=== PATIENT | male | born 1950 | race Caucasian/White ===

== ENCOUNTER 2018-12-06 17:06 | Inpatient (IN) ==
--- NOTE | 2018-12-06 17:19 | Emergency Department Note ---
Disposition Clinical Impression: Pneumonia Qualifiers: Pneumonia type: due to unspecified organism Laterality: right Lung location: lower lobe of lung Qualified Code(s): J18.1 - Lobar pneumonia, unspecified organism Sepsis Qualifiers: Sepsis type: sepsis due to unspecified organism Qualified Code(s): A41.9 - Sepsis, unspecified organism Disposition: Admitted As Inpatient Condition: Fair Referrals: Donald Gonsalez MD [Primary Care Provider] - Forms: ED Satisfaction Letter Time of Disposition: 19:46 General Adult HPI - General Stated complaint: weakness Time Seen by Provider: 12/06/18 17:15 Source: patient, EMS Mode of arrival: EMS Limitations: no limitations Nursing Notes Reviewed: Yes Vital Signs Reviewed: Yes - History of Present Illness HPI Narrative: Patient is a 68-year-old male presenting with weakness. Patient is brought in via EMS from care facility for concern for weakness as well as fall. Per EMS report, patient has had one day of weakness with fall reported yesterday, he is also had multiple episodes of diarrhea, he does state he has some nausea no vomiting. He does note that these had bright red blood per rectum, no melena. He denies any abdominal pain, chest pain or shortness of breath. He states that he just generally feels weak all over, no focal changes. No numbness, tingling or pain or seizures. No confusion. He states that his mental status is at baseline. He is not on a blood thinner. The fall history is unknown, patient states he did not lose consciousness or hit his head that he is aware of. He currently does not have any pain secondary to the fall. He does state that he has had a slight cough and has felt feverish with chills overnight. - Related Data Allergies Allergy/AdvReac Type Severity Reaction Status Date / Time No Known Allergies Allergy Verified 12/06/18 17:31 All systems ED: reviewed and negative except as stated. Review of Systems: As Per HPI Constitutional: Reports: fever, chills, weakness ENT ED: Denies: congestion Cardiovascular: Denies: chest pain, palpitations, dyspnea on exertion, syncope Respiratory: Reports: cough, dyspnea, sputum production. Denies: wheezes, hemoptysis Gastrointestinal: Reports: nausea, diarrhea, hematochezia. Denies: abdominal pain, vomiting, hematemesis, melena Genitourinary: Denies: dysuria Musculoskeletal: Denies: back pain Integumentary: Denies: rash Neurological: Reports: weakness. Denies: headache, numbness, paresthesias, confusion Endocrine: Denies: fatigue Hematological/Lymphatic: Denies: easy bleeding Past Medical History - Past Medical History Attestation: Yes The following information was validated with the patient. Source: patient Physical Exam - General Limitations: no limitations General appearance: cachectic, other (Appears unwell) - Head Head exam: atraumatic, normocephalic, normal inspection - Eye Eye exam: Present: normal appearance, PERRL, EOMI - ENT ENT exam: mucous membranes dry - Neck Neck exam: Present: normal inspection, full ROM, trachea midline - Chest Chest inspection: Present: normal inspection, symmetric chest wall rise - Respiratory Respiratory exam: Present: prolonged expiratory phase. Absent: wheezes, accessory muscle use - Cardiovascular Cardiovascular exam: Present: normal rhythm, tachycardia, normal heart sounds - Abdominal Exam Abdominal exam: Present: soft, Non-Tender. Absent: tenderness, distention, guarding, rebound, rigidity - Extremities Exam Extremities exam: Present: normal inspection - Back Exam Back exam: Present: normal inspection - Neurological Exam Neurological exam: Present: alert, oriented X3, CN II-XII intact - Expanded Neurological Exam Patient oriented to: Present: person, place, time Speech: Present: fluid speech Cranial nerves: EOM function (II, III, IV, ): Normal, facial sensation (V): Normal, facial palsy (VII): Normal, spinal accessory function (XI): Normal, tongue deviation (XII): Normal Cerebellar function: finger to nose: Normal Motor strength - LUE: 5/5 Motor strength - RUE: 5/5 Motor strength - LLE: 5/5 Motor strength - RLE: 5/5 Upper motor neuron exam: pronator drift: Absent bilaterally Sensory exam upper extremity: light touch: Normal Sensory exam lower extremity: light touch: Normal Coma Scale Eye Opening: Spontaneous Coma Scale Motor Response: Obeys Commands Coma Scale Verbal Response: Oriented Coma Scale Total: 15 - Psychiatric Psychiatric exam: Present: normal affect, normal mood - Skin Skin exam: Present: warm, intact, normal color, diaphoresis. Absent: rash Course Vital Signs Temperature 102.4 F H 12/06/18 17:22 Pulse Rate 123 12/06/18 17:22 Respiratory Rate 16 12/06/18 17:22 Blood Pressure 115/70 12/06/18 17:22 O2 Sat by Pulse Oximetry 92 12/06/18 17:22 Temperature 102 F H 12/06/18 19:10 Pulse Rate 117 12/06/18 19:44 Respiratory Rate 18 12/06/18 19:00 Blood Pressure 108/65 12/06/18 19:44 O2 Sat by Pulse Oximetry 97 12/06/18 19:44 Oxygen Delivery Oxygen Delivery Room Air Medical Decision Making - MDM Narrative Medical decision making narrative: Patient is a 68-year-old male presenting with weakness. On arrival, patient is found to be febrile, tachycardic, satting at 98% on 2 L nasal cannula. Patient overall does not appear well, does not appear toxic however. No abdominal tenderness, clear to auscultation bilaterally on examination, he is tachycardic. GCS of 15, NIH of 0. CBC does show a leukocytosis with a left shift, BMP does show acute kidney injury with an elevated serum creatinine, otherwise unremarkable. Troponin is within normal limits LFTs and lipase are within normal limits. Chest x-ray shows questionable right opacification, read by radiologist to be chronic and old, however given patient's symptoms of tachycardia, febrile and recent onset of cough, we will go ahead and start the patient on vancomycin, Zosyn as well as Levaquin, as patient currently resides in the extended care facility. Influenza is negative. At this point in time, patient has been ordered a total of 2 L normal saline, he has had a total of 1/2 liter, remains mildly hypotensive with blood pressure of 100 systolic and tac hycardic. Blood cultures have been drawn. Nursing is currently starting a second line to increase fluids. He has also been ordered Tylenol. At this point in time, he is relatively stable, calm in the bed. Patient's blood pressure after receiving approximately 1500 mL patient's blood pressure has remained at 108 systolic with a map above 65. Recommendation per hospitalist at this time is to start the patient on maintenance fluids as well as placed the patient on cardiac monitoring. He has been admitted at this time. - Medical Records Medical records reviewed: Yes I reviewed the patient's medical records. - Lab Data Lab results reviewed: Yes I reviewed the patient's lab results. Result diagrams: 12/06/18 17:45 12/06/18 17:45 Lab Results 12/06/18 12/06/18 12/06/18 Range/Units 17:45 17:45 17:45 WBC 15.1 H (4.3-11.1) K/mcL RBC 4.83 (4.19-5.50) M/mcL Hgb 14.5 (12.9-16.9) g/dL Hct 42.2 (37.5-50.1) % MCV 87.4 (83.0-100.0) fL MCH 30.0 (28.0-33.3) pg MCHC 34.4 (31.6-35.5) g/dL RDW 13.2 (11.5-14.5) % Plt Count 209 (140-400) K/mcL MPV 10.5 (9.4-12.4) fL Immature Gran % 0.5 (0-4) % Seg Neutrophils % 90.5 % Lymphocytes % 2.5 % Monocytes % 6.4 % Eosinophils % 0.0 % Basophils % 0.1 % Neutrophils # 13.7 H (1.6-8.9) K/mcL Lymphocytes # 0.4 L (0.6-4.6) K/mcL Monocytes # 1.0 (0.0-1.3) K/mcL Eosinophils # 0.0 (0.0-0.6) K/mcL Basophils # 0.0 (0.0-0.2) K/mcL PT 12.9 H (9.4-12.1) Seconds INR 1.1 APTT 33.0 (26.0-36.0) Seconds Sodium 132 L (136-145) mEq/L Potassium 3.6 (3.5-5.1) mEq/L Chloride 97 L (98-107) mEq/L Carbon Dioxide 25 (23-29) mEq/L BUN 25 H (8-23) mg/dL Creatinine 1.35 H (0.70-1.30) mg/dL Est GFR ( Amer) > 60 (> 60) Est GFR (Non-Af Amer) 52 L (> 60) BUN/Creatinine Ratio 19 (6-26) Glucose 160 H (70-105) mg/dL Calculated Osmolality 282 (280-300) Lactic Acid (0.5-2.2) mmol/L Calcium 8.8 (8.6-10.3) mg/dL Total Bilirubin 0.6 (0.3-1.0) mg/dL Direct Bilirubin 0.1 (0.0-0.2) mg/dL Indirect Bilirubin 0.5 (0.0-1.2) mg/dL AST 36 (13-39) Units/L ALT 31 (7-52) Units/L Alkaline Phosphatase 79 (34-104) Units/L Troponin I < 0.03 (< 0.04) ng/mL Serum Total Protein 6.9 (6.4-8.9) g/dL Albumin 4.2 (3.5-5.7) g/dL Globulin 2.7 (2.4-3.5) g/dL Albumin/Globulin Ratio 1.6 (1.1-2.2) Lipase 7 L (11-82) Units/L Urine Color (Yellow) Urine Clarity (Clear) Urine pH (5.0-8.0) pH Units Ur Specific [place] (1.010-1.025) Urine Protein (Neg-Trace) mg/dL Urine Glucose (UA) (Normal) mg/dL Urine Ketones (Negative) mg/dL Urine Blood (Negative) Urine Nitrite (Negative) Urine Bilirubin (Negative) Urine Urobilinogen (Normal) mg/dL Ur Leukocyte Esterase (Negative) Urine Microscopic RBC (0-3) per hpf Urine Microscopic WBC (0-3) per hpf Ur Squamous Epith Cells (None-Few) per lpf Urine Bacteria (None-Few) per hpf Hyaline Casts (None-Few) per lpf 12/06/18 12/06/18 Range/Units 17:45 18:30 WBC (4.3-11.1) K/mcL RBC (4.19-5.50) M/mcL Hgb (12.9-16.9) g/dL Hct (37.5-50.1) % MCV (83.0-100.0) fL MCH (28.0-33.3) pg MCHC (31.6-35.5) g/dL RDW (11.5-14.5) % Plt Count (140-400) K/mcL MPV (9.4-12.4) fL Immature Gran % (0-4) % Seg Neutrophils % % Lymphocytes % % Monocytes % % Eosinophils % % Basophils % % Neutrophils # (1.6-8.9) K/mcL Lymphocytes # (0.6-4.6) K/mcL Monocytes # (0.0-1.3) K/mcL Eosinophils # (0.0-0.6) K/mcL Basophils # (0.0-0.2) K/mcL PT (9.4-12.1) Seconds INR APTT (26.0-36.0) Seconds Sodium (136-145) mEq/L Potassium (3.5-5.1) mEq/L Chloride (98-107) mEq/L Carbon Dioxide (23-29) mEq/L BUN (8-23) mg/dL Creatinine (0.70-1.30) mg/dL Est GFR ( Amer) (> 60) Est GFR (Non-Af Amer) (> 60) BUN/Creatinine Ratio (6-26) Glucose (70-105) mg/dL Calculated Osmolality (280-300) Lactic Acid 1.3 (0.5-2.2) mmol/L Calcium (8.6-10.3) mg/dL Total Bilirubin (0.3-1.0) mg/dL Direct Bilirubin (0.0-0.2) mg/dL Indirect Bilirubin (0.0-1.2) mg/dL AST (13-39) Units/L ALT (7-52) Units/L Alkaline Phosphatase (34-104) Units/L Troponin I (< 0.04) ng/mL Serum Total Protein (6.4-8.9) g/dL Albumin (3.5-5.7) g/dL Globulin (2.4-3.5) g/dL Albumin/Globulin Ratio (1.1-2.2) Lipase (11-82) Units/L Urine Color Yellow (Yellow) Urine Clarity Clear (Clear) Urine pH 5.5 (5.0-8.0) pH Units Ur Specific [place] 1.025 (1.010-1.025) Urine Protein Trace (Neg-Trace) mg/dL Urine Glucose (UA) Normal (Normal) mg/dL Urine Ketones Trace H (Negative) mg/dL Urine Blood Negative (Negative) Urine Nitrite Negative (Negative) Urine Bilirubin Small H (Negative) Urine Urobilinogen Normal (Normal) mg/dL Ur Leukocyte Esterase Small H (Negative) Urine Microscopic RBC 3-5 H (0-3) per hpf Urine Microscopic WBC 3-5 H (0-3) per hpf Ur Squamous Epith Cells Moderate H (None-Few) per lpf Urine Bacteria None Seen (None-Few) per hpf Hyaline Casts None Seen (None-Few) per lpf - Radiology Data Radiology results reviewed: Yes I reviewed the patient's radiology results. Chest X-Ray 12/06/18 17:16 IMPRESSION: No acute findings. D/ / Paulo Epstein MD / Paulo Epstein MD Interpreting Provider: Paulo Epstein MD Head CT 12/06/18 17:16 IMPRESSION: No acute intracranial abnormality. D/ / Marbin Sierra MD / Marbin Sierra MD Interpreting Provider: Marbin Sierra MD - EKG Data EKG #1 EKG attestation: Yes I reviewed and interpreted this EKG. EKG results narrative: EKG performed at 1732 ventricular rate of 122, regular rhythm, normal axis, no ST segment elevation, depression. Overall appears to be sinus tachycardia S.B.A.R. - S.B.A.R. Situation: Demographics, MOA Background: Presenting Complaint, Relevant PMH, Meds, & Allergies Assessment: Vital Signs, Course and respsone to treatment, Exam Concerns, Patient/Family Expectation, Pertinant Lab Results, Outstanding Labs Recommendation: Barrier(s) to disposition, Recommendation based on pending studies, treatments, or consults S.B.A.R. Report Given to: Dr. Mitchell [email or web address] Repor Time: 19:47 (accepted) NIH Stroke Scale - Level of Consciousness LOC: Alert - LOC Questions LOC Questions: Answers both correctly - LOC Commands LOC Commands: Performs both correctly - Best Gaze Best Gaze: Normal - Visual Visual: No visual loss - Facial Palsy Facial Palsy: Normal - Motor Arms Motor Arm-Left: No drift for 10 seconds Motor Arm-Right: No drift for 10 seconds - Motor Legs Motor Leg-Left: No drift for 5 seconds Motor Leg-Right: No drift for 5 seconds - Limb Ataxia Limb Ataxia: Absent of affected limb too weak to perform exam - Sensory Sensory: Normal - Best Language Best Language: No aphasia - Dysarthria Dysarthria: Normal - Extinction and Inattention Extinction and Inattention: Normal - NIHSS Total Score NIHSS Total Score: 0
[2018-12-06] MEDS ORDERED: 0.9 % Sodium Chloride 1,000 ML IVC ONE ×2 (17:20→17:50)
--- NOTE | 2018-12-06 17:43 | Emergency Department Note ---
Disposition Clinical Impression: Pneumonia, Sepsis Disposition: Admitted As Inpatient Condition: Fair Referrals: Donald Gonslaez MD [Primary Care Provider] - Forms: ED Satisfaction Letter General Adult HPI - General Chief complaint: ED Fever Stated complaint: weakness Time Seen by Provider: 12/06/18 17:15 Source: patient Limitations: no limitations - History of Present Illness Pain Scale: 0 - Related Data Allergies Allergy/AdvReac Type Severity Reaction Status Date / Time No Known Allergies Allergy Verified 12/06/18 17:31 Past Medical History - Past Medical History Medical history: Reports: diabetes - Social History Smoking Status: Never smoker Alcohol use: Reports: occasionally Drug use: Reports: none Physical Exam - General Limitations: no limitations General appearance: alert, in no apparent distress Course Vital Signs Temperature 102.4 F H 12/06/18 17:22 Pulse Rate 123 12/06/18 17:22 Respiratory Rate 16 12/06/18 17:22 Blood Pressure 115/70 12/06/18 17:22 O2 Sat by Pulse Oximetry 92 12/06/18 17:22 Temperature 102 F H 12/06/18 19:10 Pulse Rate 117 12/06/18 19:44 Respiratory Rate 18 12/06/18 19:00 Blood Pressure 108/65 12/06/18 19:44 O2 Sat by Pulse Oximetry 97 12/06/18 19:44 Oxygen Delivery Oxygen Delivery Room Air Medical Decision Making - Lab Data Result diagrams: 12/06/18 17:45 12/06/18 17:45 Lab Results 12/06/18 12/06/18 12/06/18 Range/Units 17:45 17:45 17:45 WBC 15.1 H (4.3-11.1) K/mcL RBC 4.83 (4.19-5.50) M/mcL Hgb 14.5 (12.9-16.9) g/dL Hct 42.2 (37.5-50.1) % MCV 87.4 (83.0-100.0) fL MCH 30.0 (28.0-33.3) pg MCHC 34.4 (31.6-35.5) g/dL RDW 13.2 (11.5-14.5) % Plt Count 209 (140-400) K/mcL MPV 10.5 (9.4-12.4) fL Immature Gran % 0.5 (0-4) % Seg Neutrophils % 90.5 % Lymphocytes % 2.5 % Monocytes % 6.4 % Eosinophils % 0.0 % Basophils % 0.1 % Neutrophils # 13.7 H (1.6-8.9) K/mcL Lymphocytes # 0.4 L (0.6-4.6) K/mcL Monocytes # 1.0 (0.0-1.3) K/mcL Eosinophils # 0.0 (0.0-0.6) K/mcL Basophils # 0.0 (0.0-0.2) K/mcL PT 12.9 H (9.4-12.1) Seconds INR 1.1 APTT 33.0 (26.0-36.0) Seconds Sodium 132 L (136-145) mEq/L Potassium 3.6 (3.5-5.1) mEq/L Chloride 97 L (98-107) mEq/L Carbon Dioxide 25 (23-29) mEq/L BUN 25 H (8-23) mg/dL Creatinine 1.35 H (0.70-1.30) mg/dL Est GFR ( Amer) > 60 (> 60) Est GFR (Non-Af Amer) 52 L (> 60) BUN/Creatinine Ratio 19 (6-26) Glucose 160 H (70-105) mg/dL Calculated Osmolality 282 (280-300) Lactic Acid (0.5-2.2) mmol/L Calcium 8.8 (8.6-10.3) mg/dL Total Bilirubin 0.6 (0.3-1.0) mg/dL Direct Bilirubin 0.1 (0.0-0.2) mg/dL Indirect Bilirubin 0.5 (0.0-1.2) mg/dL AST 36 (13-39) Units/L ALT 31 (7-52) Units/L Alkaline Phosphatase 79 (34-104) Units/L Troponin I < 0.03 (< 0.04) ng/mL Serum Total Protein 6.9 (6.4-8.9) g/dL Albumin 4.2 (3.5-5.7) g/dL Globulin 2.7 (2.4-3.5) g/dL Albumin/Globulin Ratio 1.6 (1.1-2.2) Lipase 7 L (11-82) Units/L Urine Color (Yellow) Urine Clarity (Clear) Urine pH (5.0-8.0) pH Units Ur Specific [place] (1.010-1.025) Urine Protein (Neg-Trace) mg/dL Urine Glucose (UA) (Normal) mg/dL Urine Ketones (Negative) mg/dL Urine Blood (Negative) Urine Nitrite (Negative) Urine Bilirubin (Negative) Urine Urobilinogen (Normal) mg/dL Ur Leukocyte Esterase (Negative) Urine Microscopic RBC (0-3) per hpf Urine Microscopic WBC (0-3) per hpf Ur Squamous Epith Cells (None-Few) per lpf Urine Bacteria (None-Few) per hpf Hyaline Casts (None-Few) per lpf 12/06/18 12/06/18 Range/Units 17:45 18:30 WBC (4.3-11.1) K/mcL RBC (4.19-5.50) M/mcL Hgb (12.9-16.9) g/dL Hct (37.5-50.1) % MCV (83.0-100.0) fL MCH (28.0-33.3) pg MCHC (31.6-35.5) g/dL RDW (11.5-14.5) % Plt Count (140-400) K/mcL MPV (9.4-12.4) fL Immature Gran % (0-4) % Seg Neutrophils % % Lymphocytes % % Monocytes % % Eosinophils % % Basophils % % Neutrophils # (1.6-8.9) K/mcL Lymphocytes # (0.6-4.6) K/mcL Monocytes # (0.0-1.3) K/mcL Eosinophils # (0.0-0.6) K/mcL Basophils # (0.0-0.2) K/mcL PT (9.4-12.1) Seconds INR APTT (26.0-36.0) Seconds Sodium (136-145) mEq/L Potassium (3.5-5.1) mEq/L Chloride (98-107) mEq/L Carbon Dioxide (23-29) mEq/L BUN (8-23) mg/dL Creatinine (0.70-1.30) mg/dL Est GFR ( Amer) (> 60) Est GFR (Non-Af Amer) (> 60) BUN/Creatinine Ratio (6-26) Glucose (70-105) mg/dL Calculated Osmolality (280-300) Lactic Acid 1.3 (0.5-2.2) mmol/L Calcium (8.6-10.3) mg/dL Total Bilirubin (0.3-1.0) mg/dL Direct Bilirubin (0.0-0.2) mg/dL Indirect Bilirubin (0.0-1.2) mg/dL AST (13-39) Units/L ALT (7-52) Units/L Alkaline Phosphatase (34-104) Units/L Troponin I (< 0.04) ng/mL Serum Total Protein (6.4-8.9) g/dL Albumin (3.5-5.7) g/dL Globulin (2.4-3.5) g/dL Albumin/Globulin Ratio (1.1-2.2) Lipase (11-82) Units/L Urine Color Yellow (Yellow) Urine Clarity Clear (Clear) Urine pH 5.5 (5.0-8.0) pH Units Ur Specific [place] 1.025 (1.010-1.025) Urine Protein Trace (Neg-Trace) mg/dL Urine Glucose (UA) Normal (Normal) mg/dL Urine Ketones Trace H (Negative) mg/dL Urine Blood Negative (Negative) Urine Nitrite Negative (Negative) Urine Bilirubin Small H (Negative) Urine Urobilinogen Normal (Normal) mg/dL Ur Leukocyte Esterase Small H (Negative) Urine Microscopic RBC 3-5 H (0-3) per hpf Urine Microscopic WBC 3-5 H (0-3) per hpf Ur Squamous Epith Cells Moderate H (None-Few) per lpf Urine Bacteria None Seen (None-Few) per hpf Hyaline Casts None Seen (None-Few) per lpf Critical Care Time Critical Care Time: Yes Total Critical Care Time: 40 Attestation: Critical care performed: Time is exclusive of separately billable procedures. Time includes: direct patient care, patient reassessment, coordination of patient care, interpretation of data (laboratory data, radiology data, and respiratory data), review of allan cunha's medical records, medical consultation and documentation of patient care. Procedures included in critical care time: Procedures excluded from critical care time: Attestation Statement - Attestation Attestation: I examined this patient and my medical decision-making was reviewed with the Resident Physician. I agree with the documented findings, disposition and treatment plan as described except to the extent set forth below. Patient presents to the ED with a chief complaint of altered mental status, weakness, falls, slurred speech. EMS was called to the [employer] where he works. They said he had slurred speech and had fallen a couple times today. On exam he is febrile 102. Abdomen soft. Lungs diminished but clear. Nontoxic appearing. NIH stroke scale is 0. Plan. Septic workup. Head CT. Workup is negative. He is treated for pneumonia. IV antibiotics. Admitted. Chest X-Ray 12/06/18 17:16 IMPRESSION: No acute findings. D/ / Paulo Epstein MD / Paulo Epstein MD Interpreting Provider: Paulo Epstein MD Head CT 12/06/18 17:16 IMPRESSION: No acute intracranial abnormality. D/ / Marbin Sierra MD / Marbin Sierra MD Interpreting Provider: Marbin Sierra MD
[2018-12-06 18:05] LABS: Basophils % 0.1 %; Hematocrit 42.2 % (37.5-50.1); Hemoglobin 14.5 g/dL (12.9-16.9); Immature Granulocytes % 0.5 % (0-4); Lymphocytes # 0.4 K/mcL (0.6-4.6); Lymphocytes % 2.5 %; Mean Corpuscular HGB Conc 34.4 g/dL (31.6-35.5); Mean Corpuscular Volume 87.4 fL (83.0-100.0); Mean Platelet Volume 10.5 fL (9.4-12.4); Monocytes % 6.4 %; Neutrophils # 13.7 K/mcL (1.6-8.9); Platelet Count 209 K/mcL (140-400); Red Blood Count 4.83 M/mcL (4.19-5.50); Red Cell Distribution Width 13.2 % (11.5-14.5); Segmented Neutrophils % 90.5 %
[2018-12-06 18:20] LABS: INR 1.1; Prothrombin Time 12.9 Seconds (9.4-12.1)
[2018-12-06] MEDS ORDERED: Piperacillin/Tazobactam 3.375 GM in 0.9 % Sodium Chloride Mini Bag 100 ML IVPB ONE (18:26)
[2018-12-06] MEDS ORDERED: Levofloxacin 750 MG/150 ML 750 MG/150 ML BAG IVPB ONE (18:26)
[2018-12-06 18:27] LABS: Alanine Aminotransferase 31 Units/L (7-52); Albumin 4.2 g/dL (3.5-5.7); Albumin/Globulin Ratio 1.6 (1.1-2.2); Alkaline Phosphatase 79 Units/L (34-104); Aspartate Amino Transferase 36 Units/L (13-39); BUN/Creatinine Ratio 19 (6-26); Bilirubin,Direct 0.1 mg/dL (0.0-0.2); Bilirubin,Indirect 0.5 mg/dL (0.0-1.2); Bilirubin,Total 0.6 mg/dL (0.3-1.0); Blood Urea Nitrogen 25 mg/dL (8-23); Calcium 8.8 mg/dL (8.6-10.3); Carbon Dioxide 25 mEq/L (23-29); Chloride 97 mEq/L (98-107); Globulin 2.7 g/dL (2.4-3.5); Glucose 160 mg/dL (70-105); Lipase 7 Units/L (11-82); Osmolality,Calculated 282 (280-300); Potassium 3.6 mEq/L (3.5-5.1); Sodium 132 mEq/L (136-145); Total Protein 6.9 g/dL (6.4-8.9); Troponin I < 0.03 ng/mL (< 0.04); eGFR For Non-African Americans 52 (> 60)
[2018-12-06 18:47] LABS: Bilirubin,Urine Small (Negative); Blood,Urine Negative (Negative); Clarity,Urine Clear (Clear); Color,Urine Yellow (Yellow); Glucose,Urine (UA) Normal (Normal); Ketones,Urine Trace mg/dL (Negative); Leukocyte Esterase,Urine Small (Negative); Nitrite,Urine Negative (Negative); PH,Urine 5.5 pH Units (5.0-8.0); Protein,Urine Trace mg/dL (Neg-Trace); Specific Gravity,Urine 1.025 (1.010-1.025); Urobilinogen,Urine Normal (Normal)
[2018-12-06 18:50] LABS: Bacteria,Urine None Seen per hpf (None-Few); Hyaline Casts,Urine None Seen per lpf (None-Few); Squamous Epithelial Cell,Urine Moderate per lpf (None-Few)
[2018-12-06] MEDS: 0.9 % Sodium Chloride 1,000 ML IVC SCH ×2 (20:59→23:47)
[2018-12-06] MEDS ORDERED: Naloxone 0.4 MG/ML INJ IVP PRN (23:55)
[2018-12-06] MEDS ORDERED: Albuterol 2.5 MG/3 ML NEBULIZER IH PRN (23:57)
[2018-12-06] MEDS ORDERED: Ondansetron 4 MG/2 ML VIAL IVP PRN (23:57)
[2018-12-07] MEDS: Ipratropium/Albuterol Neb 3 ML IH SCH ×6 (00:40→19:42)
[2018-12-07] MEDS: Acetaminophen 325 MG TABLET PO PRN (04:05)
[2018-12-07 05:11] LABS: Basophils % 0.1 %; Hematocrit 38.7 % (37.5-50.1); Hemoglobin 13.1 g/dL (12.9-16.9); Immature Granulocytes % 0.4 % (0-4); Lymphocytes % 7.5 %; Mean Corpuscular HGB Conc 33.9 g/dL (31.6-35.5); Mean Corpuscular Hemoglobin 29.8 pg (28.0-33.3); Mean Corpuscular Volume 88.2 fL (83.0-100.0); Mean Platelet Volume 10.1 fL (9.4-12.4); Monocytes # 1.1 K/mcL (0.0-1.3); Monocytes % 8.1 %; Neutrophils # 11.5 K/mcL (1.6-8.9); Platelet Count 174 K/mcL (140-400); Red Blood Count 4.39 M/mcL (4.19-5.50); Red Cell Distribution Width 13.5 % (11.5-14.5); Segmented Neutrophils % 83.9 %
[2018-12-07] MEDS: *HR* Heparin 5,000 UNIT/ML VIAL SQ SCH ×2 (05:21→18:17)
[2018-12-07 05:31] LABS: Alanine Aminotransferase 27 Units/L (7-52); Albumin 3.6 g/dL (3.5-5.7); Albumin/Globulin Ratio 1.6 (1.1-2.2); Alkaline Phosphatase 59 Units/L (34-104); Aspartate Amino Transferase 35 Units/L (13-39); BUN/Creatinine Ratio 16 (6-26); Bilirubin,Total 0.5 mg/dL (0.3-1.0); Blood Urea Nitrogen 21 mg/dL (8-23); Calcium 7.8 mg/dL (8.6-10.3); Carbon Dioxide 24 mEq/L (23-29); Chloride 104 mEq/L (98-107); Globulin 2.3 g/dL (2.4-3.5); Glucose 118 mg/dL (70-105); Magnesium 1.6 mg/dL (1.6-2.6); Osmolality,Calculated 290 (280-300); Potassium 3.8 mEq/L (3.5-5.1); Sodium 138 mEq/L (136-145); Total Protein 5.9 g/dL (6.4-8.9); eGFR For Non-African Americans 56 (> 60)
--- NOTE | 2018-12-07 05:34 | Internal Med History&Physical ---
Date of Encounter: 12/06/18 Time of Encounter: 23:05 Internal Medicine - H&P: HPI Chief complaint: cough; fever; fall Admitted From: Emergency Dept Plans for Post Hospital Care: Home History of present illness: Mr. Nazario is a 68 year old male who presents to the ER tonight after having sustained a fall. He had been sick for the last 2 weeks complaining of cough, congestion, low-grade fevers, shortness of breath, and dehydration. He was working in the local [employer] today when he became lightheaded and dizzy and fell. He did not have any syncope. He was there with a friend and coworker who brought him to the ER. Workup in ER revealed patient to have clinical concerns for pneumonia and sepsis. Chest xray was negative. However, exam was suggestive of pneumonia, and he was treated as such. He was then admitted to hospitalist service. Upon my assessment of the patient, patient confirms the above history. He has had some fevers and chills as well as night sweats the last 2-3 days. He has had a harsh, productive cough, shortness of breath, pleuritic chest pain, weakness, fatigue, and poor fluid intake. He lives alone and cares for himself, but he has had some ill contacts at the [employer]. Past Med Surg Social Fam HX - Past Medical History Attestation: Yes The following information was validated with the patient. Source: patient, old records reviewed Medical history: diabetes - Past Surgical History Surgical History: other Additional surgical history: neck surgery - Social History Smoking Status: Never smoker Alcohol use: occasionally Drug use: none Current living situation: Home - Independent Activity Level: Uses cane/walker Recent Out of Country Travel Within the Last 8 Weeks: No - Family History Mother Living Status: Hx Family Cancer: Yes Internal Medicine - H&P: Meds Allergy/AdvReac Type Severity Reaction Status Date / Time No Known Allergies Allergy Verified 12/06/18 17:31 - Constitutional Constitutional: chills, fever(s), weakness, no night sweats - EENT Eyes: no blurry vision, no change in vision Ears: no ear pain, no tinnitus Nose, mouth and throat: nasal congestion, no sinus pressure, no sore throat - Cardiovascular Cardiovascular ROS IM: dyspnea, no chest pain, no orthopnea, no paroxysmal nocturnal dyspnea, no syncope - Respiratory Respiratory: cough, dyspnea, wheezing, chest congestion, change in phlegm color, pain with cough, no excessive phlegm production - Gastrointestinal Gastrointestinal: nausea, vomiting, no abdominal pain, no diarrhea, no hematemesis, no hematochezia, no melena - Genitourinary Genitourinary ROS male: no dysuria, no flank pain, no hematuria - Musculoskeletal Musculoskeletal ROS IM: arthralgias, back pain, no muscle cramps - Integumentary Integumentary IM: no rash, no jaundice - Neurological Neurological ROS: no disequilibrium, no dizziness, no focal weakness, no headache(s), no numbness - Psychiatric Psychiatric: no anxiety, no difficulty concentrating - Endocrine Endocrine IM: no polydipsia, no polyuria - Allergic/Immunologic Allergic/Immunologic: no GI upset with certain foods - Constitutional Vitals: Temp Pulse Resp BP Pulse Ox 102.5 F H 116 15 107/57 99 12/07/18 03:35 12/07/18 03:35 12/07/18 03:35 12/07/18 03:35 12/07/18 03:35 General appearance: Present: cooperative, mild distress, A&O X 3, pleasant, answers questions appropriately Exam: ill; non-toxic - Head Head exam: Present: atraumatic, normal inspection - Eye Eye exam: Present: EOMI, PERRL. Absent: scleral icterus Pupils: Present: normal accommodation - ENT ENT exam: Present: mucous membranes dry, normal exam, normal oropharynx - Neck Neck exam general surgery: Present: full ROM, supple, trachea midline. Absent: lymphadenopathy, tenderness, nuchal rigidity, thyromegaly - Respiratory Respiratory exam: Present: prolonged expiratory phase, respiratory distress, rhonchi, wheezes. Absent: chest wall tenderness, rales Additional comments: mostly focal in right base - Cardiovascular Cardiovascular exam: Present: distant heart sounds, RRR, +S1, +S2, systolic murmur, tachycardia. Absent: diastolic murmur - GI/Abdominal GI/Abdominal exam: Present: normal bowel sounds, soft. Absent: hepatomegaly, mass, splenomegaly - Extremities Exam Extremities exam: Present: full ROM, warm, radial pulses palpable and symmetrical. Absent: calf tenderness, pedal edema, tenderness - Back Exam Back exam: Present: normal inspection. Absent: CVA tenderness (L), CVA tenderness (R) - Neurological Exam Neurological exam: Present: alert, CN II-XII intact, oriented X3, no focal deficits, strengths equal and symetr throughout - Psychiatric Psychiatric exam: Present: normal affect, normal mood - Skin Skin exam: Present: dry, intact, warm Internal Med - H&P Results - Labs CBC & Chem 7: 12/07/18 04:52 12/06/18 17:45 Labs: Short CBC 12/06/18 12/07/18 Range/Units 17:45 04:52 WBC 15.1 H 13.7 H (4.3-11.1) K/mcL Hgb 14.5 13.1 (12.9-16.9) g/dL Hct 42.2 38.7 (37.5-50.1) % Plt Count 209 174 (140-400) K/mcL Neutrophils # 13.7 H 11.5 H (1.6-8.9) K/mcL BMP 12/06/18 17:45 Sodium 132 L Potassium 3.6 Chloride 97 L Carbon Dioxide 25 BUN 25 H Creatinine 1.35 H Glucose 160 H Calcium 8.8 Cardiac Enzymes 12/06/18 Range/Units 17:45 Troponin I < 0.03 (< 0.04) ng/mL Liver Function 12/06/18 Range/Units 17:45 Total Bilirubin 0.6 (0.3-1.0) mg/dL Direct Bilirubin 0.1 (0.0-0.2) mg/dL AST 36 (13-39) Units/L ALT 31 (7-52) Units/L Alkaline Phosphatase 79 (34-104) Units/L Albumin 4.2 (3.5-5.7) g/dL Urine 12/06/18 Range/Units 18:30 Urine Color Yellow (Yellow) Urine Clarity Clear (Clear) Urine pH 5.5 (5.0-8.0) pH Units Ur Specific [place] 1.025 (1.010-1.025) Urine Protein Trace (Neg-Trace) mg/dL Urine Glucose (UA) Normal (Normal) mg/dL - EKG Data -: EKG Interpreted by Myself - EKG Data Prior EKG available for review: no EKG comments: 12/07/18 05:44 sinus tachycardia, no acute ST changes - Impressions ITS Impressions Chest X-Ray 12/06/18 17:16 IMPRESSION: No acute findings. D/ / Paulo Epstein MD / Paulo Epstein MD Interpreting Provider: Paulo Epstein MD Head CT 12/06/18 17:16 IMPRESSION: No acute intracranial abnormality. D/ / Marbin Sierra MD / Marbin Sierra MD Interpreting Provider: Marbin Sierra MD - Diagnostic Studies Chest x-ray Status: image reviewed by me (suspect RML process) - Assessment and Plan (1) Pneumonia Current Visit: Yes Status: Acute Assessment and plan: 1. Will treat with Levaquin, aerosols, and oxygen PRN. 2. Blood cultures obtained in ER. 3. Sputum cultures ordered. 4. IVF hydration. 5. Monitor clinically. Qualifiers: Pneumonia type: due to unspecified organism Laterality: right Lung location: lower lobe of lung Qualified Code(s): J18.1 - Lobar pneumonia, unspecified organism (2) Sepsis Current Visit: Yes Status: Acute Assessment and plan: 1. Patient received fluid boluses in ER. 2. Will continue IVF, trend lactate, and continue IV antibiotics. 3. Monitor on telemetry and clinically. Qualifiers: Sepsis type: sepsis due to unspecified organism Qualified Code(s): A41.9 - Sepsis, unspecified organism (3) Acute kidney injury Current Visit: Yes Status: Acute Assessment and plan: 1. Likely due to sepsis and dehydration. 2. IVF hydration and bolus. 3. Monitor renal function and consult nephrology if fails to improve. (4) DVT prophylaxis Current Visit: Yes Status: Acute Assessment and plan: 1 Heparin SQ.
[2018-12-07] MEDS: 0.9 % Sodium Chloride 1,000 ML IVC SCH ×2 (07:05→14:37)
[2018-12-07 12:21] LABS: Adenovirus Not Detected (Not Detect); Bordetella Pertussis Not Detected (Not Detect); Chlamydophila pneumoniae Not Detected (Not Detect); Coronavirus 229E Not Detected (Not Detect); Coronavirus HKU1 Not Detected (Not Detect); Coronavirus NL63 Not Detected (Not Detect); Coronavirus OC43 Not Detected (Not Detect); Human Metapneumovirus Not Detected (Not Detect); Human Rhinovirus/Enterovirus Not Detected (Not Detect); Influenza A Subtype 2009 H1 Not Detected (Not Detect); Influenza A Untypeable Not Detected (Not Detect); Influenza B Not Detected (Not Detect); Mycoplasma pneumoniae Not Detected (Not Detect); Parainfluenza Virus 1 Not Detected (Not Detect); Parainfluenza Virus 2 Not Detected (Not Detect); Parainfluenza Virus 3 Not Detected (Not Detect); Parainfluenza Virus 4 Not Detected (Not Detect); Respiratory Syncytial Virus Not Detected (Not Detect)
--- NOTE | 2018-12-07 15:45 | Internal Med Progress Note ---
Hospitalist Progress Note - Encounter Date of Encounter: 12/07/18 Time of Encounter: 12:15 - Subjective Interval History: H&P reviewed. Patient with history of diabetes was admitted for cough, fever, and tachycardia. Feels better after being started on tx. No chest pain or worsening cough/sputum production - Exam Vitals: Temp Pulse Resp BP Pulse Ox 99.4 F 105 15 111/71 93 12/07/18 14:14 12/07/18 14:14 12/07/18 14:14 12/07/18 14:14 12/07/18 14:14 Exam: General: alert and oriented x 3, ill-appearing Cardiovascular:Normal S1 & S2, No JVD. Tachycardic Lungs: bilateral rhonchi Abdomen:Soft, non-tender, no rigidity. Neurological: Moving all 4 limbs spontaneously - Assessment and Plan (1) Sepsis Current Visit: Yes Status: Acute Assessment and Plan: Presented with tachycardia, fever, and leukocytosis Secondary to pneumonia, normal lactic acid Treatment as below (2) Pneumonia Current Visit: Yes Status: Acute Assessment and Plan: although CXR did not show natividad consolidation, his lung exam is grossly abnormal with 3/4 SIRS criteria started on Levaquin, continue respiratory viral panel -ve follow up on blood cultures Wean oxygen as tolerated (3) Acute kidney injury Current Visit: Yes Status: Acute Assessment and Plan: Creatinine improving with IV fluid, will hold further IVF and encourage oral intake Renally dose antibiotics avoid nephrotoxins (4) DVT prophylaxis Current Visit: Yes Status: Acute Assessment and Plan: Heparin SQ - Time Spent with Patient Total time spent is greater than 50% in coordination of care (as documented) at patient's floor/unit and/or counseling patient: 25 - 35 minutes Plan of Care Discussed with: patient Internal Medicine: Result - Labs CBC & Chem 7: 12/07/18 04:52 12/07/18 04:52 Labs: Short CBC 12/06/18 12/07/18 Range/Units 17:45 04:52 WBC 15.1 H 13.7 H (4.3-11.1) K/mcL Hgb 14.5 13.1 (12.9-16.9) g/dL Hct 42.2 38.7 (37.5-50.1) % Plt Count 209 174 (140-400) K/mcL Neutrophils # 13.7 H 11.5 H (1.6-8.9) K/mcL BMP 12/06/18 12/07/18 17:45 04:52 Sodium 132 L 138 Potassium 3.6 3.8 Chloride 97 L 104 Carbon Dioxide 25 24 BUN 25 H 21 Creatinine 1.35 H 1.28 Glucose 160 H 118 H Calcium 8.8 7.8 L Cardiac Enzymes 12/06/18 Range/Units 17:45 Troponin I < 0.03 (< 0.04) ng/mL Liver Function 12/06/18 12/07/18 Range/Units 17:45 04:52 Total Bilirubin 0.6 0.5 (0.3-1.0) mg/dL Direct Bilirubin 0.1 (0.0-0.2) mg/dL AST 36 35 (13-39) Units/L ALT 31 27 (7-52) Units/L Alkaline Phosphatase 79 59 (34-104) Units/L Albumin 4.2 3.6 (3.5-5.7) g/dL Urine 12/06/18 Range/Units 18:30 Urine Color Yellow (Yellow) Urine Clarity Clear (Clear) Urine pH 5.5 (5.0-8.0) pH Units Ur Specific [place] 1.025 (1.010-1.025) Urine Protein Trace (Neg-Trace) mg/dL Urine Glucose (UA) Normal (Normal) mg/dL - ABG Interpretation ABG results: PT/INR, D-dimer PT 12.9 Seconds (9.4-12.1) H 12/06/18 17:45 - Impressions Impressions Chest X-Ray 12/06/18 17:16 IMPRESSION: No acute findings. D/ / Paulo Epstein MD / Paulo Epstein MD Interpreting Provider: Paulo Epstein MD Head CT 12/06/18 17:16 IMPRESSION: No acute intracranial abnormality. D/ / Marbin Sierra MD / Marbin Sierra MD Interpreting Provider: Marbin Sierra MD Consult Discharge Plan - Plan Referrals: Wallace,Donald D, MD [Primary Care Provider] - (1) Sepsis Qualifiers: Sepsis type: sepsis due to unspecified organism Qualified Code(s): A41.9 - S epsis, unspecified organism (2) Pneumonia Qualifiers: Pneumonia type: due to unspecified organism Laterality: right Lung location: lower lobe of lung Qualified Code(s): J18.1 - Lobar pneumonia, unspecified organism
[2018-12-07] MEDS ORDERED: Levofloxacin 750 MG/150 ML 750 MG/150 ML BAG IVPB SCH (19:00)
[2018-12-08] MEDS: Ipratropium/Albuterol Neb 3 ML IH SCH ×6 (00:11→20:49)
[2018-12-08] MEDS: Acetaminophen 325 MG TABLET PO PRN (00:18)
[2018-12-08] MEDS: *HR* Heparin 5,000 UNIT/ML VIAL SQ SCH (05:20)
[2018-12-08 07:55] VITALS: BP 115/66
[2018-12-08 09:35] LABS: Basophils % 0.3 %; Eosinophils % 0.1 %; Hematocrit 38.6 % (37.5-50.1); Hemoglobin 13.2 g/dL (12.9-16.9); Immature Granulocytes % 0.3 % (0-4); Lymphocytes # 1.5 K/mcL (0.6-4.6); Lymphocytes % 19.2 %; Mean Corpuscular HGB Conc 34.2 g/dL (31.6-35.5); Mean Corpuscular Volume 87.7 fL (83.0-100.0); Mean Platelet Volume 10.5 fL (9.4-12.4); Monocytes # 0.8 K/mcL (0.0-1.3); Monocytes % 9.8 %; Neutrophils # 5.5 K/mcL (1.6-8.9); Platelet Count 161 K/mcL (140-400); Red Cell Distribution Width 13.3 % (11.5-14.5); Segmented Neutrophils % 70.3 %
[2018-12-08 09:46] LABS: BUN/Creatinine Ratio 12 (6-26); Blood Urea Nitrogen 12 mg/dL (8-23); Calcium 8.3 mg/dL (8.6-10.3); Carbon Dioxide 26 mEq/L (23-29); Chloride 105 mEq/L (98-107); Glucose 131 mg/dL (70-105); Osmolality,Calculated 290 (280-300); Potassium 3.3 mEq/L (3.5-5.1); Sodium 139 mEq/L (136-145); eGFR For Non-African Americans > 60 (> 60)
--- NOTE | 2018-12-08 10:46 | Discharge Summary ---
- NOTES TO OUTPATIENT PROVIDER Notes to Outpatient Provider: Follow with PCP for resolution of pneumonia Orders not resulted at time of discharge: Pending orders 12/06/18 17:45 Culture,Blood [BC] Stat 12/07/18 06:00 ECG 12 lead ECG [ECG] AM 0600 Date of Encounter: 12/08/18 Time of Encounter: 08:15 - Discharge Diagnosis (1) Sepsis Priority: Primary Status: Acute Qualifiers: Sepsis type: sepsis due to unspecified organism Qualified Code(s): A41.9 - Sepsis, unspecified organism (2) Pneumonia Priority: Secondary Status: Acute Qualifiers: Pneumonia type: due to unspecified organism Laterality: right Lung location: lower lobe of lung Qualified Code(s): J18.1 - Lobar pneumonia, unspecified organism (3) Acute kidney injury Priority: Secondary Status: Acute (4) DVT prophylaxis Priority: Secondary Status: Acute Hospital course: Mr. Nazario is a 68 year old male with history of diabetes and hypertension was admitted for severe sepsis secondary to pneumonia and JOSE LUIS. This chest x-ray did not show any obvious consolidation but he presented with tachycardia, fever, leukocytosis, with lung exam significant for diffuse rhonchi bilaterally. Clinically improved with IV fluid and IV Levaquin. Pt had temp of 100.3 on the night of 12/07 and was advised to stay in the hospital on 12/08 to ensure resolution of fever but he adamantly request to be discharged, which is not unreasonable as he is no longer symptomatic and hemodynamically stable. He will be discharged on a total of 7 day course of Levaquin and close PCP follow-up next week. Advised to return to the ED if he develops worsening symptoms including chest pain, cough, sputum production, shortness of breath, or fever/chills. Discharge discussed with: patient, nurse - Time Spent with Patient Total time spent providing and/or coordinating discharge services: 28 mins - Discharge Medications Prescriptions: New levoFLOXacin [Levaquin] 750 mg PO DAILY #5 tablet Continue Metformin HCl [Glucophage Xr] 500 mg PO BID Lisinopril 2.5 mg PO DAILY Multivit-Min/Folic/Vit K/Lycop [Men's 50 Plus Multivitamin Tab] 1 tab PO DAILY No Action Cholecalciferol (D-3) [Vitamin D] 1,000 unit PO DAILY Home Medications: Cholecalciferol (D-3) [Vitamin D] 1,000 unit PO DAILY 12/07/18 [History] Lisinopril 2.5 mg PO DAILY 12/07/18 [History] Metformin HCl [Glucophage Xr] 500 mg PO BID 12/07/18 [History] Multivit-Min/Folic/Vit K/Lycop [Men's 50 Plus Multivitamin Tab] 1 tab PO DAILY 12/07/18 [History] levoFLOXacin [Levaquin] 750 mg PO DAILY #5 tablet 12/08/18 [Rx] Allergies/Adverse Reactions: Allergy/AdvReac Type Severity Reaction Status Date / Time No Known Allergies Allergy Verified 12/07/18 22:36 Date of admission: 12/06/18 23:55 Primary care physician: Donald Gonsalez MD - Constitutional Vitals: Temp Pulse Resp BP Pulse Ox 98.7 F 97 14 115/66 95 12/08/18 07:50 12/08/18 07:50 12/08/18 07:56 12/08/18 07:50 12/08/18 07:56 General appearance: Present: cooperative, mild distress, A&O X 3, pleasant, answers questions appropriately Exam: General: alert and oriented x 3, not in distress Cardiovascular:Normal S1 & S2, No JVD. Normal rate and rhythm Lungs: Mostly clear with scattered rhonchi Abdomen:Soft, non-tender, no rigidity. Neurological: Moving all 4 limbs spontaneously - Patient Status Disposition: Home, Self-Care Condition: Fair Functional capacity at discharge: independent ambulation Overall status at discharge: patient is progressing back to baseline - Discharge Instructions Instructions: Pneumonia (DC), Sepsis (DC) Follow Up With: Donald Gonsalez MD [Primary Care Provider] - Additional Instructions: Complete a total of 7 days of Levaquin Follow up with PCP next week - Diet and Activity Activity: resume usual activities as tolerated Diet: regular diet
[2018-12-08] MEDS ORDERED: Levofloxacin 750 MG/150 ML 750 MG/150 ML BAG IVPB ONE (10:47)
[2018-12-08] MEDS ORDERED: *HR* Metformin 500 MG TABLET PO SCH (17:00)
[2018-12-08] MEDS ORDERED: Levofloxacin 750 MG/150 ML 750 MG/150 ML BAG IVPB SCH (19:00)
[2018-12-09] MEDS ORDERED: Multivit/Ca/Min/Fe/FA 1 TAB TABLET PO SCH (09:00)
--- NOTE | 2018-12-09 09:39 | Electrocardiograph Report ---
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
== END 2018-12-08 18:00 | disposition home or self-care (01) | DRG 871 ==
LOC: 3ANU 17:06 → EMEROOARM 17:06 → 3ANU 21:18 → SUATTDRO 23:55
PROVIDERS: ADMIT Pediatrics; ATTEND Internal Medicine

== ENCOUNTER 2020-05-17 12:17 | Inpatient (IN) ==
[2020-05-17] MEDS ORDERED: 0.9 % Sodium Chloride 1,000 ML IVC ONE (12:20)
[2020-05-17 13:04] LABS: Basophils # 0.1 K/mcL (0.0-0.2); Basophils % 0.7 %; Eosinophils % 0.2 %; Hematocrit 48.3 % (37.5-50.1); Hemoglobin 15.8 g/dL (12.9-16.9); Immature Granulocytes % 0.4 % (0-4); Lymphocytes # 1.4 K/mcL (0.6-4.6); Lymphocytes % 10.1 %; Mean Corpuscular HGB Conc 32.7 g/dL (31.6-35.5); Mean Corpuscular Hemoglobin 29.8 pg (28.0-33.3); Mean Corpuscular Volume 91.1 fL (83.0-100.0); Mean Platelet Volume 10.4 fL (9.4-12.4); Monocytes # 1.2 K/mcL (0.0-1.3); Monocytes % 9.2 %; Neutrophils # 10.8 K/mcL (1.6-8.9); Platelet Count 289 K/mcL (140-400); Red Cell Distribution Width 13.1 % (11.5-14.5); Segmented Neutrophils % 79.4 %; White Blood Count 13.5 K/mcL (4.3-11.1)
[2020-05-17 13:12] LABS: INR 1.2; Prothrombin Time 13.5 Seconds (9.4-12.1)
[2020-05-17 13:15] LABS: Activated Partial Thrombo Time 38.1 Seconds (26.0-36.0)
[2020-05-17 13:37] LABS: Alanine Aminotransferase 45 Units/L (7-52); Albumin 4.1 g/dL (3.5-5.7); Albumin/Globulin Ratio 1.5 (1.1-2.2); Alkaline Phosphatase 75 Units/L (34-104); Aspartate Amino Transferase 115 Units/L (13-39); BUN/Creatinine Ratio 16 (6-26); Bilirubin,Direct 0.3 mg/dL (0.0-0.2); Bilirubin,Indirect 1.1 mg/dL (0.0-1.0); Bilirubin,Total 1.4 mg/dL (0.3-1.0); Blood Urea Nitrogen 19 mg/dL (8-23); Calcium 10.1 mg/dL (8.6-10.3); Carbon Dioxide 27 mEq/L (23-29); Chloride 100 mEq/L (98-107); Ethanol < 10 mg/dL (Less than 10); Globulin 2.8 g/dL (2.4-3.5); Glucose 128 mg/dL (70-105); Osmolality,Calculated 292 (280-300); Potassium 4.5 mEq/L (3.5-5.1); Sodium 139 mEq/L (136-145); Total Protein 6.9 g/dL (6.4-8.9); Troponin I 0.06 ng/mL (< 0.04); eGFR For African Americans > 60 (> 60); eGFR For Non-African Americans 60 (> 60)
[2020-05-17 13:53] LABS: Thyroid Stimulating Hormone 0.792 mcIU/mL (0.340-5.600)
[2020-05-17 15:23] LABS: Creatine Kinase 4585 Units/L (30-223)
[2020-05-17] MEDS ORDERED: Naloxone 0.4 MG/ML INJ IVP PRN (15:54)
[2020-05-17] MEDS ORDERED: Acetaminophen 325 MG TABLET PO PRN (15:55)
[2020-05-17] MEDS ORDERED: *HR* HYDROcodone/Acet 5/325 mg TABLET PO PRN (15:55)
[2020-05-17] MEDS ORDERED: polyethylene glycoL 3350 17 GM POWD.PACK PO PRN (15:56)
[2020-05-17] MEDS ORDERED: Simethicone 80 MG TAB.CHEW PO PRN (15:56)
[2020-05-17] MEDS ORDERED: *HR* Dextrose 50 % in Water (Vial) 50 ML VIAL IVP PRN (15:57)
[2020-05-17] MEDS ORDERED: D5% in Water 1,000 ML IVC PRN (15:57)
[2020-05-17] MEDS ORDERED: Dextrose Gel 15 GM/37.5 ML TUBE PO PRN ×2 (15:57)
[2020-05-17] MEDS ORDERED: Aspirin 81 MG TAB.CHEW PO STA (16:12)
[2020-05-17] MEDS ORDERED: *HR* Enoxaparin 80 MG/0.8 ML SYRINGE SQ STA (16:21)
[2020-05-17 17:15] LABS: Bilirubin,Urine Small (Negative); Blood,Urine Large (Negative); Clarity,Urine Clear (Clear); Color,Urine Yellow (Yellow); Glucose,Urine (UA) Normal (Normal); Ketones,Urine 40 mg/dL (Negative); Leukocyte Esterase,Urine Negative (Negative); Nitrite,Urine Negative (Negative); PH,Urine 5.5 pH Units (5.0-8.0); Protein,Urine 30 mg/dL (Neg-Trace); Specific Gravity,Urine >= 1.030 (1.010-1.025); Urobilinogen,Urine Normal (Normal)
[2020-05-17 17:18] LABS: Hyaline Casts,Urine Few per lpf (None Seen); Mucus,Urine Few per lpf (None-Few); RBC,Urine TNTC per hpf (0-3); Squamous Epithelial Cell,Urine Few per hpf (None-Few); WBC,Urine 15-30 per hpf (0-3)
[2020-05-17] MEDS: Insulin LISPRO 300 UNITS/3 ML VIAL SQ SCH (17:19)
[2020-05-17] MEDS: 0.9 % Sodium Chloride 1,000 ML IVC SCH ×2 (17:59→18:09)
[2020-05-17 19:02] LABS: Amphetamine Screen,Urine Negative ng/mL (Cutoff=1000); Barbiturate Screen,Urine Negative ng/mL (Cutoff=200); Benzodiazepines Screen,Urine Negative ng/mL (Cutoff=200); Cannabinoid Screen,Urine Negative ng/mL (Cutoff = 50); Cocaine Screen,Urine Negative ng/mL (Cutoff= 300); Opiate Screen,Urine Negative ng/mL (Cutoff=300); Phencyclidine Screen,Urine Negative ng/mL (Cutoff=25)
[2020-05-18 03:31] LABS: Basophils # 0.1 K/mcL (0.0-0.2); Basophils % 0.6 %; Eosinophils # 0.2 K/mcL (0.0-0.6); Eosinophils % 2.4 %; Hematocrit 41.1 % (37.5-50.1); Immature Granulocytes % 0.2 % (0-4); Lymphocytes # 2.1 K/mcL (0.6-4.6); Lymphocytes % 20.6 %; Mean Corpuscular HGB Conc 32.1 g/dL (31.6-35.5); Mean Corpuscular Hemoglobin 29.3 pg (28.0-33.3); Mean Corpuscular Volume 91.3 fL (83.0-100.0); Mean Platelet Volume 10.8 fL (9.4-12.4); Monocytes % 10.4 %; Neutrophils # 6.6 K/mcL (1.6-8.9); Platelet Count 267 K/mcL (140-400); Red Cell Distribution Width 13.2 % (11.5-14.5); Segmented Neutrophils % 65.8 %
[2020-05-18 03:32] LABS: Hemoglobin 13.2 g/dL (12.9-16.9)
[2020-05-18 03:55] LABS: Alanine Aminotransferase 35 Units/L (7-52); Albumin 3.4 g/dL (3.5-5.7); Albumin/Globulin Ratio 1.5 (1.1-2.2); Alkaline Phosphatase 58 Units/L (34-104); Aspartate Amino Transferase 77 Units/L (13-39); BUN/Creatinine Ratio 19 (6-26); Bilirubin,Total 1.1 mg/dL (0.3-1.0); Blood Urea Nitrogen 18 mg/dL (8-23); Calcium 8.7 mg/dL (8.6-10.3); Carbon Dioxide 25 mEq/L (23-29); Chloride 104 mEq/L (98-107); Globulin 2.3 g/dL (2.4-3.5); Glucose 103 mg/dL (70-105); Magnesium 1.8 mg/dL (1.6-2.6); Osmolality,Calculated 288 (280-300); Potassium 3.9 mEq/L (3.5-5.1); Sodium 138 mEq/L (136-145); Total Protein 5.7 g/dL (6.4-8.9); eGFR For African Americans > 60 (> 60); eGFR For Non-African Americans > 60 (> 60)
[2020-05-18] MEDS: 0.9 % Sodium Chloride 1,000 ML IVC SCH (04:19)
[2020-05-18] MEDS: Insulin LISPRO 300 UNITS/3 ML VIAL SQ SCH ×3 (07:22→16:06)
[2020-05-18] MEDS: Cholecalciferol (D-3) 1,000 UNIT (25MCG) TABLET PO SCH (07:23)
[2020-05-18] MEDS: Aspirin Enteric Coated 81 MG Tablet PO SCH (07:23)
[2020-05-19 07:01] LABS: Hematocrit 40.9 % (37.5-50.1); Hemoglobin 13.3 g/dL (12.9-16.9); Mean Corpuscular HGB Conc 32.5 g/dL (31.6-35.5); Mean Corpuscular Hemoglobin 29.8 pg (28.0-33.3); Mean Corpuscular Volume 91.5 fL (83.0-100.0); Mean Platelet Volume 10.7 fL (9.4-12.4); Platelet Count 271 K/mcL (140-400); Red Blood Count 4.47 M/mcL (4.19-5.50); Red Cell Distribution Width 12.9 % (11.5-14.5); White Blood Count 10.1 K/mcL (4.3-11.1)
[2020-05-19 07:18] LABS: BUN/Creatinine Ratio 19 (6-26); Blood Urea Nitrogen 17 mg/dL (8-23); Calcium 9.4 mg/dL (8.6-10.3); Carbon Dioxide 27 mEq/L (23-29); Chloride 103 mEq/L (98-107); Creatine Kinase 841 Units/L (30-223); Glucose 124 mg/dL (70-105); Osmolality,Calculated 287 (280-300); Potassium 3.7 mEq/L (3.5-5.1); Sodium 137 mEq/L (136-145); eGFR For African Americans > 60 (> 60); eGFR For Non-African Americans > 60 (> 60)
[2020-05-19] MEDS: Insulin LISPRO 300 UNITS/3 ML VIAL SQ SCH ×3 (08:00→16:09)
[2020-05-19] MEDS: Aspirin Enteric Coated 81 MG Tablet PO SCH (08:05)
[2020-05-19] MEDS: Cholecalciferol (D-3) 1,000 UNIT (25MCG) TABLET PO SCH (08:05)
[2020-05-20] MEDS: Insulin LISPRO 300 UNITS/3 ML VIAL SQ SCH ×3 (07:40→16:52)
[2020-05-20] MEDS: Cholecalciferol (D-3) 1,000 UNIT (25MCG) TABLET PO SCH (07:52)
[2020-05-20] MEDS: Aspirin Enteric Coated 81 MG Tablet PO SCH (07:52)
[2020-05-21 07:17] VITALS: BP 142/85
[2020-05-21] MEDS: Insulin LISPRO 300 UNITS/3 ML VIAL SQ SCH (07:22)
[2020-05-21] MEDS: Cholecalciferol (D-3) 1,000 UNIT (25MCG) TABLET PO SCH (07:45)
[2020-05-21] MEDS: Aspirin Enteric Coated 81 MG Tablet PO SCH (07:45)
[2020-05-21] MEDS ORDERED: lisinopriL 5 MG TABLET PO SCH (09:00)
== END 2020-05-21 10:39 | DRG 558 ==
LOC: EMEROOARM 12:17 → 3BNU 12:17 → SUATTDRO 16:17 → 3BNU 16:53
PROVIDERS: ADMIT Student in an Organized Health Care Education/Training Program; ATTEND Nurse Practitioner Adult Health

== ENCOUNTER 2021-06-25 05:01 | Inpatient (IN) ==
[2021-06-25 06:53] LABS: Basophils # 0.1 K/mcL (0.0-0.2); Basophils % 0.4 %; Eosinophils % 0.2 %; Hematocrit 32.7 % (37.5-50.1); Hemoglobin 10.1 g/dL (12.9-16.9); Immature Granulocytes % 0.3 % (0-4); Lymphocytes # 0.7 K/mcL (0.6-4.6); Lymphocytes % 6.1 %; Mean Corpuscular HGB Conc 30.9 g/dL (31.6-35.5); Mean Corpuscular Hemoglobin 28.3 pg (28.0-33.3); Mean Corpuscular Volume 91.6 fL (83.0-100.0); Mean Platelet Volume 9.7 fL (9.4-12.4); Monocytes # 0.9 K/mcL (0.0-1.3); Monocytes % 7.8 %; Neutrophils # 9.9 K/mcL (1.6-8.9); Platelet Count 329 K/mcL (140-400); Red Blood Count 3.57 M/mcL (4.19-5.50); Red Cell Distribution Width 17.5 % (11.5-14.5); Segmented Neutrophils % 85.2 %; White Blood Count 11.6 K/mcL (4.3-11.1)
[2021-06-25 07:14] LABS: BUN/Creatinine Ratio 12 (6-26); Blood Urea Nitrogen 12 mg/dL (8-23); Calcium 9.5 mg/dL (8.6-10.3); Carbon Dioxide 31 mEq/L (23-29); Chloride 101 mEq/L (98-107); Creatine Kinase 798 Units/L (30-223); Glucose 133 mg/dL (70-105); Osmolality,Calculated 286 (280-300); Potassium 4.1 mEq/L (3.5-5.1); Sodium 137 mEq/L (136-145); Troponin I 0.03 ng/mL (< 0.04); eGFR For African Americans > 60 (> 60); eGFR For Non-African Americans > 60 (> 60)
[2021-06-25 07:40] LABS: Bilirubin,Urine Negative (Negative); Blood,Urine Trace (Negative); Clarity,Urine Clear (Clear); Color,Urine Light-Yellow (Yellow); Glucose,Urine (UA) 70 mg/dL (Normal); Ketones,Urine Trace mg/dL (Negative); Leukocyte Esterase,Urine Negative (Negative); Nitrite,Urine Negative (Negative); Protein,Urine Negative (Neg-Trace); RBC,Urine 0-3 per hpf (0-3); Specific Gravity,Urine 1.013 (1.010-1.025); Urobilinogen,Urine Normal (Normal); WBC,Urine 0-3 per hpf (0-3)
[2021-06-25] MEDS ORDERED: Isovue-370 500 ML BOTTLE IVP ONE (08:27)
[2021-06-25] MEDS ORDERED: 0.9 % Sodium Chloride 1,000 ML IV ONE (08:27)
[2021-06-25] MEDS ORDERED: Tdap (Boostrix) Vaccine 0.5 ML SYRINGE IM ONE (08:27)
[2021-06-25] MEDS: Clindamycin 600 MG/50 ML 600 MG/50 ML IV.SOLN IVPB SCH ×2 (09:11→17:13)
[2021-06-25] MEDS ORDERED: Naloxone 0.4 MG/ML INJ IVP PRN (11:54)
[2021-06-25 12:25] LABS: Influenza A PCR Negative (Negative); Influenza B PCR Negative (Negative); Resp. Syncytial Virus PCR Negative (Negative)
[2021-06-25 12:41] LABS: SARS-CoV-2 by PCR (In House) Negative (Negative)
[2021-06-25] MEDS ORDERED: D5% in Water 1,000 ML IVC PRN (14:11)
[2021-06-25] MEDS ORDERED: *HR* Dextrose 50 % in Water (Syg) 50 ML SYRINGE IVP PRN (14:11)
[2021-06-25] MEDS ORDERED: Dextrose Gel 15 GM/37.5 ML TUBE PO PRN ×2 (14:11)
[2021-06-25] MEDS ORDERED: Acetaminophen 325 MG TABLET PO PRN (14:16)
[2021-06-25] MEDS ORDERED: Perflutren Lipid Microsphere 1.3 ML in 0.9 % Sodium Chloride 8.7 ML IVP PRN (14:17)
[2021-06-25] MEDS: Insulin LISPRO 300 UNITS/3 ML VIAL SUBQ SCH (17:11)
[2021-06-25] MEDS ORDERED: Ringers Solution, Lactated 1,000 ML IVC SCH (18:30)
[2021-06-25] MEDS ORDERED: Insulin LISPRO 300 UNITS/3 ML VIAL SUBQ SCH (21:00)
[2021-06-26 06:44] LABS: Basophils # 0.1 K/mcL (0.0-0.2); Basophils % 0.7 %; Eosinophils # 0.3 K/mcL (0.0-0.6); Eosinophils % 3.8 %; Hematocrit 29.9 % (37.5-50.1); Hemoglobin 9.3 g/dL (12.9-16.9); Immature Granulocytes % 0.1 % (0-4); Lymphocytes # 1.6 K/mcL (0.6-4.6); Lymphocytes % 22.3 %; Mean Corpuscular HGB Conc 31.1 g/dL (31.6-35.5); Mean Corpuscular Hemoglobin 28.4 pg (28.0-33.3); Mean Corpuscular Volume 91.2 fL (83.0-100.0); Monocytes # 0.7 K/mcL (0.0-1.3); Monocytes % 10.1 %; Neutrophils # 4.5 K/mcL (1.6-8.9); Platelet Count 314 K/mcL (140-400); Red Blood Count 3.28 M/mcL (4.19-5.50); White Blood Count 7.1 K/mcL (4.3-11.1)
[2021-06-26 07:04] LABS: BUN/Creatinine Ratio 13 (6-26); Blood Urea Nitrogen 12 mg/dL (8-23); Calcium 9.1 mg/dL (8.6-10.3); Carbon Dioxide 29 mEq/L (23-29); Chloride 102 mEq/L (98-107); Glucose 93 mg/dL (70-105); Osmolality,Calculated 281 (280-300); Potassium 3.7 mEq/L (3.5-5.1); Sodium 136 mEq/L (136-145); eGFR For African Americans > 60 (> 60); eGFR For Non-African Americans > 60 (> 60)
[2021-06-26 07:08] LABS: % Iron Saturation 21 % (20-55); Iron 53 mcg/dL (65-175); Transferrin 184 mg/dL (203-362)
[2021-06-26 07:23] LABS: Ferritin 392 ng/mL (20-250)
[2021-06-26 07:27] LABS: Folate 16.6 ng/mL (3.0-16.0)
[2021-06-26] MEDS ORDERED: Cyanocobalamin (B-12) 1,000 MCG/ML VIAL SQ ONE (07:45)
[2021-06-26] MEDS: lisinopriL 5 MG TABLET PO SCH (08:46)
[2021-06-26] MEDS: Aspirin Enteric Coated 81 MG Tablet PO SCH (08:46)
[2021-06-26] MEDS: Insulin LISPRO 300 UNITS/3 ML VIAL SUBQ SCH ×3 (09:47→18:43)
[2021-06-26 14:26] LABS: Estimated Average Glucose 105 mg/dl; Hemoglobin A1C 5.3 %
[2021-06-27 05:01] LABS: Basophils % 0.4 %; Eosinophils # 0.1 K/mcL (0.0-0.6); Eosinophils % 0.8 %; Hematocrit 31.2 % (37.5-50.1); Hemoglobin 9.8 g/dL (12.9-16.9); Lymphocytes # 1.4 K/mcL (0.6-4.6); Lymphocytes % 13.5 %; Mean Corpuscular HGB Conc 31.4 g/dL (31.6-35.5); Mean Corpuscular Hemoglobin 28.5 pg (28.0-33.3); Mean Corpuscular Volume 90.7 fL (83.0-100.0); Mean Platelet Volume 9.9 fL (9.4-12.4); Monocytes % 9.7 %; Neutrophils # 7.8 K/mcL (1.6-8.9); Platelet Count 315 K/mcL (140-400); Red Blood Count 3.44 M/mcL (4.19-5.50); Segmented Neutrophils % 74.6 %; White Blood Count 10.4 K/mcL (4.3-11.1)
[2021-06-27 05:23] LABS: Alanine Aminotransferase 19 Units/L (7-52); Albumin 3.3 g/dL (3.5-5.7); Albumin/Globulin Ratio 1.1 (1.1-2.2); Alkaline Phosphatase 84 Units/L (34-104); Aspartate Amino Transferase 33 Units/L (13-39); BUN/Creatinine Ratio 20 (6-26); Bilirubin,Direct 0.1 mg/dL (0.0-0.2); Bilirubin,Indirect 0.3 mg/dL (0.0-1.0); Bilirubin,Total 0.4 mg/dL (0.3-1.0); Blood Urea Nitrogen 18 mg/dL (8-23); Calcium 8.8 mg/dL (8.6-10.3); Carbon Dioxide 30 mEq/L (23-29); Chloride 99 mEq/L (98-107); Creatine Kinase 501 Units/L (30-223); Glucose 131 mg/dL (70-105); Magnesium 1.8 mg/dL (1.6-2.6); Osmolality,Calculated 282 (280-300); Potassium 4.1 mEq/L (3.5-5.1); Sodium 134 mEq/L (136-145); Total Protein 6.3 g/dL (6.4-8.9); eGFR For African Americans > 60 (> 60); eGFR For Non-African Americans > 60 (> 60)
[2021-06-27] MEDS ORDERED: Ringers Solution, Lactated 1,000 ML IVC ONE (07:29)
[2021-06-27] MEDS: lisinopriL 5 MG TABLET PO SCH (09:33)
[2021-06-27] MEDS: Aspirin Enteric Coated 81 MG Tablet PO SCH (09:33)
[2021-06-28 04:15] LABS: Basophils % 0.3 %; Eosinophils # 0.2 K/mcL (0.0-0.6); Eosinophils % 1.8 %; Hematocrit 30.6 % (37.5-50.1); Hemoglobin 9.8 g/dL (12.9-16.9); Immature Granulocytes % 0.3 % (0-4); Lymphocytes # 1.5 K/mcL (0.6-4.6); Lymphocytes % 14.6 %; Mean Corpuscular Hemoglobin 28.7 pg (28.0-33.3); Mean Corpuscular Volume 89.7 fL (83.0-100.0); Mean Platelet Volume 9.8 fL (9.4-12.4); Monocytes % 9.7 %; Neutrophils # 7.6 K/mcL (1.6-8.9); Platelet Count 302 K/mcL (140-400); Red Blood Count 3.41 M/mcL (4.19-5.50); Red Cell Distribution Width 17.7 % (11.5-14.5); Segmented Neutrophils % 73.3 %; White Blood Count 10.4 K/mcL (4.3-11.1)
[2021-06-28 04:32] LABS: BUN/Creatinine Ratio 23 (6-26); Blood Urea Nitrogen 19 mg/dL (8-23); Calcium 8.8 mg/dL (8.6-10.3); Carbon Dioxide 31 mEq/L (23-29); Chloride 98 mEq/L (98-107); Glucose 132 mg/dL (70-105); Magnesium 1.8 mg/dL (1.6-2.6); Osmolality,Calculated 280 (280-300); Sodium 133 mEq/L (136-145); eGFR For African Americans > 60 (> 60); eGFR For Non-African Americans > 60 (> 60)
[2021-06-28] MEDS: Aspirin Enteric Coated 81 MG Tablet PO SCH (08:39)
[2021-06-28] MEDS: lisinopriL 5 MG TABLET PO SCH (08:39)
[2021-06-29 05:10] LABS: Basophils % 0.3 %; Eosinophils # 0.2 K/mcL (0.0-0.6); Hematocrit 29.1 % (37.5-50.1); Hemoglobin 9.2 g/dL (12.9-16.9); Immature Granulocytes % 0.3 % (0-4); Lymphocytes # 1.5 K/mcL (0.6-4.6); Lymphocytes % 15.6 %; Mean Corpuscular HGB Conc 31.6 g/dL (31.6-35.5); Mean Corpuscular Hemoglobin 28.3 pg (28.0-33.3); Mean Corpuscular Volume 89.5 fL (83.0-100.0); Mean Platelet Volume 9.8 fL (9.4-12.4); Monocytes % 10.7 %; Neutrophils # 6.7 K/mcL (1.6-8.9); Platelet Count 313 K/mcL (140-400); Red Blood Count 3.25 M/mcL (4.19-5.50); Red Cell Distribution Width 17.6 % (11.5-14.5); Segmented Neutrophils % 71.1 %; White Blood Count 9.5 K/mcL (4.3-11.1)
[2021-06-29 05:28] LABS: BUN/Creatinine Ratio 26 (6-26); Blood Urea Nitrogen 24 mg/dL (8-23); Calcium 8.9 mg/dL (8.6-10.3); Carbon Dioxide 31 mEq/L (23-29); Chloride 98 mEq/L (98-107); Creatine Kinase 313 Units/L (30-223); Glucose 135 mg/dL (70-105); Magnesium 1.9 mg/dL (1.6-2.6); Osmolality,Calculated 282 (280-300); Potassium 4.1 mEq/L (3.5-5.1); Sodium 133 mEq/L (136-145); eGFR For African Americans > 60 (> 60); eGFR For Non-African Americans > 60 (> 60)
[2021-06-29] MEDS: Aspirin Enteric Coated 81 MG Tablet PO SCH (09:25)
[2021-06-29] MEDS: lisinopriL 5 MG TABLET PO SCH (09:25)
[2021-06-30 05:22] LABS: Basophils % 0.5 %; Eosinophils # 0.3 K/mcL (0.0-0.6); Eosinophils % 3.9 %; Hematocrit 29.2 % (37.5-50.1); Hemoglobin 9.6 g/dL (12.9-16.9); Immature Granulocytes % 0.2 % (0-4); Lymphocytes # 1.5 K/mcL (0.6-4.6); Lymphocytes % 18.1 %; Mean Corpuscular HGB Conc 32.9 g/dL (31.6-35.5); Mean Corpuscular Hemoglobin 29.7 pg (28.0-33.3); Mean Corpuscular Volume 90.4 fL (83.0-100.0); Monocytes # 0.9 K/mcL (0.0-1.3); Monocytes % 11.3 %; Neutrophils # 5.4 K/mcL (1.6-8.9); Platelet Count 321 K/mcL (140-400); Red Blood Count 3.23 M/mcL (4.19-5.50); Red Cell Distribution Width 17.4 % (11.5-14.5); White Blood Count 8.2 K/mcL (4.3-11.1)
[2021-06-30 05:44] LABS: BUN/Creatinine Ratio 35 (6-26); Blood Urea Nitrogen 29 mg/dL (8-23); Carbon Dioxide 28 mEq/L (23-29); Chloride 100 mEq/L (98-107); Glucose 159 mg/dL (70-105); Magnesium 1.9 mg/dL (1.6-2.6); Osmolality,Calculated 289 (280-300); Potassium 4.3 mEq/L (3.5-5.1); Sodium 135 mEq/L (136-145); eGFR For African Americans > 60 (> 60); eGFR For Non-African Americans > 60 (> 60)
[2021-06-30] MEDS: lisinopriL 5 MG TABLET PO SCH (08:54)
[2021-06-30] MEDS: Aspirin Enteric Coated 81 MG Tablet PO SCH (08:54)
[2021-06-30] MEDS ORDERED: Dextrose Gel 15 GM/37.5 ML TUBE PO PRN ×2 (13:23)
[2021-06-30] MEDS ORDERED: *HR* Dextrose 50 % in Water (Syg) 50 ML SYRINGE IVP PRN (13:23)
[2021-06-30] MEDS ORDERED: D5% in Water 1,000 ML IVC PRN (13:23)
[2021-06-30] MEDS: Insulin LISPRO 300 UNITS/3 ML VIAL SUBQ SCH ×3 (14:13→20:17)
[2021-06-30] MEDS ORDERED: Ringers Solution, Lactated 1,000 ML IVC ONE (15:21)
[2021-07-01 05:22] LABS: Basophils % 0.6 %; Eosinophils # 0.2 K/mcL (0.0-0.6); Hematocrit 31.2 % (37.5-50.1); Hemoglobin 9.8 g/dL (12.9-16.9); Immature Granulocytes % 0.3 % (0-4); Lymphocytes # 1.2 K/mcL (0.6-4.6); Lymphocytes % 17.5 %; Mean Corpuscular HGB Conc 31.4 g/dL (31.6-35.5); Mean Corpuscular Hemoglobin 28.4 pg (28.0-33.3); Mean Corpuscular Volume 90.4 fL (83.0-100.0); Mean Platelet Volume 10.2 fL (9.4-12.4); Monocytes # 0.6 K/mcL (0.0-1.3); Monocytes % 9.1 %; Neutrophils # 4.8 K/mcL (1.6-8.9); Platelet Count 328 K/mcL (140-400); Red Blood Count 3.45 M/mcL (4.19-5.50); Red Cell Distribution Width 17.3 % (11.5-14.5); Segmented Neutrophils % 69.5 %; White Blood Count 6.9 K/mcL (4.3-11.1)
[2021-07-01 05:43] LABS: BUN/Creatinine Ratio 32 (6-26); Blood Urea Nitrogen 24 mg/dL (8-23); Calcium 9.1 mg/dL (8.6-10.3); Carbon Dioxide 29 mEq/L (23-29); Chloride 99 mEq/L (98-107); Glucose 121 mg/dL (70-105); Magnesium 1.9 mg/dL (1.6-2.6); Osmolality,Calculated 281 (280-300); Potassium 4.5 mEq/L (3.5-5.1); Sodium 133 mEq/L (136-145); eGFR For African Americans > 60 (> 60); eGFR For Non-African Americans > 60 (> 60)
[2021-07-01] MEDS: Aspirin Enteric Coated 81 MG Tablet PO SCH (09:02)
[2021-07-01] MEDS: Insulin LISPRO 300 UNITS/3 ML VIAL SUBQ SCH ×4 (09:02→20:07)
[2021-07-02 05:13] LABS: BUN/Creatinine Ratio 36 (6-26); Blood Urea Nitrogen 28 mg/dL (8-23); Carbon Dioxide 30 mEq/L (23-29); Chloride 99 mEq/L (98-107); Glucose 141 mg/dL (70-105); Magnesium 1.9 mg/dL (1.6-2.6); Osmolality,Calculated 284 (280-300); Potassium 4.1 mEq/L (3.5-5.1); Sodium 133 mEq/L (136-145); eGFR For African Americans > 60 (> 60); eGFR For Non-African Americans > 60 (> 60)
[2021-07-02 05:18] LABS: Basophils # 0.1 K/mcL (0.0-0.2); Eosinophils # 0.3 K/mcL (0.0-0.6); Eosinophils % 4.2 %; Hematocrit 31.6 % (37.5-50.1); Hemoglobin 10.2 g/dL (12.9-16.9); Immature Granulocytes % 0.2 % (0-4); Lymphocytes # 1.8 K/mcL (0.6-4.6); Lymphocytes % 28.7 %; Mean Corpuscular HGB Conc 32.3 g/dL (31.6-35.5); Mean Corpuscular Hemoglobin 29.1 pg (28.0-33.3); Mean Corpuscular Volume 90.3 fL (83.0-100.0); Monocytes # 0.6 K/mcL (0.0-1.3); Monocytes % 10.1 %; Neutrophils # 3.5 K/mcL (1.6-8.9); Platelet Count 374 K/mcL (140-400); Segmented Neutrophils % 55.8 %; White Blood Count 6.2 K/mcL (4.3-11.1)
[2021-07-02] MEDS: Insulin LISPRO 300 UNITS/3 ML VIAL SUBQ SCH ×2 (08:15→12:20)
[2021-07-02] MEDS: Aspirin Enteric Coated 81 MG Tablet PO SCH (08:33)
[2021-07-02 11:02] VITALS: PULSE 99
[2021-07-02 15:25] LABS: Influenza A PCR Negative (Negative); Influenza B PCR Negative (Negative); Resp. Syncytial Virus PCR Negative (Negative); SARS-CoV-2 by PCR (In House) Negative (Negative)
[2021-07-02 15:36] VITALS: BP 100/60; TEMP 98.7; O2SAT 96
== END 2021-07-02 15:56 | DRG 67 ==
LOC: SUATTDRO → EMEROOARM 05:01 → 4WAOSI 05:01 → SUATTDRO 12:10 → 4WAOSI 12:43 → SUATTDRO 06-26 11:10 → 3BNU 06-28 14:55
PROVIDERS: ADMIT Family Medicine; ATTEND Internal Medicine

== ENCOUNTER 2021-08-11 12:00 | Inpatient (IN) ==
[2021-08-11] MEDS ORDERED: 0.9 % Sodium Chloride 1,000 ML IVC ONE (12:27)
[2021-08-11 12:47] LABS: Basophils % 0.5 %; Eosinophils # 0.1 K/mcL (0.0-0.6); Eosinophils % 0.8 %; Hematocrit 33.5 % (37.5-50.1); Hemoglobin 10.7 g/dL (12.9-16.9); Immature Granulocytes % 0.3 % (0-4); Lymphocytes # 1.1 K/mcL (0.6-4.6); Lymphocytes % 13.7 %; Mean Corpuscular HGB Conc 31.9 g/dL (31.6-35.5); Mean Corpuscular Hemoglobin 27.7 pg (28.0-33.3); Mean Corpuscular Volume 86.8 fL (83.0-100.0); Monocytes # 0.7 K/mcL (0.0-1.3); Monocytes % 9.4 %; Neutrophils # 5.9 K/mcL (1.6-8.9); Platelet Count 364 K/mcL (140-400); Red Blood Count 3.86 M/mcL (4.19-5.50); Red Cell Distribution Width 16.2 % (11.5-14.5); Segmented Neutrophils % 75.3 %; White Blood Count 7.8 K/mcL (4.3-11.1)
[2021-08-11 14:56] LABS: Bilirubin,Urine Negative (Negative); Blood,Urine Trace (Negative); Clarity,Urine Clear (Clear); Color,Urine Light-Yellow (Yellow); Glucose,Urine (UA) Normal (Normal); Hyaline Casts,Urine Few per lpf (None Seen); Ketones,Urine 40 mg/dL (Negative); Leukocyte Esterase,Urine Negative (Negative); Nitrite,Urine Negative (Negative); Protein,Urine Negative (Neg-Trace); RBC,Urine 0-3 per hpf (0-3); Specific Gravity,Urine 1.014 (1.010-1.025); Urobilinogen,Urine Normal (Normal); WBC,Urine 0-3 per hpf (0-3)
[2021-08-11 16:16] LABS: Alanine Aminotransferase 60 Units/L (7-52); Albumin 3.3 g/dL (3.5-5.7); Alkaline Phosphatase 78 Units/L (34-104); Aspartate Amino Transferase 141 Units/L (13-39); BUN/Creatinine Ratio 23 (6-26); Bilirubin,Total 0.7 mg/dL (0.3-1.0); Blood Urea Nitrogen 19 mg/dL (8-23); Calcium 8.8 mg/dL (8.6-10.3); Carbon Dioxide 21 mEq/L (23-29); Chloride 98 mEq/L (98-107); Creatine Kinase 3754 Units/L (30-223); Globulin 3.2 g/dL (2.4-3.5); Glucose 50 mg/dL (70-105); Magnesium 1.6 mg/dL (1.6-2.6); Osmolality,Calculated 278 (280-300); Sodium 134 mEq/L (136-145); Thyroid Stimulating Hormone 1.548 mcIU/mL (0.340-5.600); Total Protein 6.5 g/dL (6.4-8.9); Troponin I 0.03 ng/mL (< 0.04); eGFR For African Americans > 60 (> 60); eGFR For Non-African Americans > 60 (> 60)
[2021-08-11] MEDS ORDERED: 0.9 % Sodium Chloride 1,000 ML IV ONE (16:55)
[2021-08-11] MEDS ORDERED: *HR* Dextrose 50 % in Water (Syg) 50 ML SYRINGE IVP ONE (17:03)
[2021-08-11] MEDS ORDERED: *HR* Dextrose 50 % in Water (Syg) 50 ML SYRINGE ONE (17:04)
[2021-08-11] MEDS ORDERED: Naloxone 0.4 MG/ML INJ IVP PRN (18:06)
[2021-08-11] MEDS ORDERED: Ondansetron 4 MG/2 ML VIAL IVP PRN (18:06)
[2021-08-11] MEDS ORDERED: Melatonin 3 MG TABLET PO PRN (18:06)
[2021-08-11] MEDS ORDERED: D5% in Water 1,000 ML IVC PRN (18:34)
[2021-08-11] MEDS ORDERED: *HR* Dextrose 50 % in Water (Syg) 50 ML SYRINGE IVP PRN (18:34)
[2021-08-11] MEDS ORDERED: Dextrose Gel 15 GM/37.5 ML TUBE PO PRN ×2 (18:34)
[2021-08-11] MEDS: Insulin LISPRO 300 UNITS/3 ML VIAL SUBQ SCH (20:25)
[2021-08-11] MEDS: 0.9 % Sodium Chloride 1,000 ML IVC SCH (20:42)
[2021-08-12 02:16] LABS: Hematocrit 32.3 % (37.5-50.1); Hemoglobin 10.1 g/dL (12.9-16.9); Immature Granulocytes % 0.3 % (0-4); Lymphocytes % 14.3 %; Mean Corpuscular HGB Conc 31.3 g/dL (31.6-35.5); Mean Corpuscular Hemoglobin 28.6 pg (28.0-33.3); Mean Corpuscular Volume 91.5 fL (83.0-100.0); Mean Platelet Volume 9.6 fL (9.4-12.4); Monocytes % 10.5 %; Platelet Count 351 K/mcL (140-400); Red Blood Count 3.53 M/mcL (4.19-5.50); Red Cell Distribution Width 16.4 % (11.5-14.5); Segmented Neutrophils % 73.3 %; White Blood Count 7.9 K/mcL (4.3-11.1)
[2021-08-12 02:17] LABS: Basophils # 0.1 K/mcL (0.0-0.2); Basophils % 0.6 %; Eosinophils # 0.1 K/mcL (0.0-0.6); Lymphocytes # 1.1 K/mcL (0.6-4.6); Monocytes # 0.8 K/mcL (0.0-1.3); Neutrophils # 5.8 K/mcL (1.6-8.9)
[2021-08-12 02:52] LABS: BUN/Creatinine Ratio 20 (6-26); Blood Urea Nitrogen 16 mg/dL (8-23); Calcium 8.2 mg/dL (8.6-10.3); Carbon Dioxide 20 mEq/L (23-29); Chloride 103 mEq/L (98-107); Creatine Kinase 3527 Units/L (30-223); Glucose 60 mg/dL (70-105); Magnesium 1.6 mg/dL (1.6-2.6); Osmolality,Calculated 277 (280-300); Potassium 3.9 mEq/L (3.5-5.1); Sodium 134 mEq/L (136-145); eGFR For African Americans > 60 (> 60); eGFR For Non-African Americans > 60 (> 60)
[2021-08-12] MEDS: 0.9 % Sodium Chloride 1,000 ML IVC SCH ×3 (04:34→21:26)
[2021-08-12] MEDS: *HR* Enoxaparin 40 MG/0.4 ML SYRINGE SQ SCH (05:22)
[2021-08-12] MEDS: Insulin LISPRO 300 UNITS/3 ML VIAL SUBQ SCH ×3 (07:42→17:26)
[2021-08-12] MEDS: cefTRIAXone 1,000 MG in 0.9 % Sodium Chloride Mini Bag 100 ML IVPB SCH (14:45)
[2021-08-13 02:23] LABS: Basophils % 0.3 %; Eosinophils # 0.1 K/mcL (0.0-0.6); Eosinophils % 1.1 %; Hematocrit 31.9 % (37.5-50.1); Hemoglobin 9.9 g/dL (12.9-16.9); Immature Granulocytes % 0.1 % (0-4); Lymphocytes # 1.6 K/mcL (0.6-4.6); Lymphocytes % 22.5 %; Mean Corpuscular Hemoglobin 27.7 pg (28.0-33.3); Mean Corpuscular Volume 89.1 fL (83.0-100.0); Mean Platelet Volume 9.6 fL (9.4-12.4); Monocytes # 0.9 K/mcL (0.0-1.3); Monocytes % 12.3 %; Neutrophils # 4.6 K/mcL (1.6-8.9); Platelet Count 313 K/mcL (140-400); Red Blood Count 3.58 M/mcL (4.19-5.50); Red Cell Distribution Width 16.3 % (11.5-14.5); Segmented Neutrophils % 63.7 %; White Blood Count 7.3 K/mcL (4.3-11.1)
[2021-08-13 02:32] LABS: BUN/Creatinine Ratio 20 (6-26); Blood Urea Nitrogen 15 mg/dL (8-23); Calcium 8.1 mg/dL (8.6-10.3); Carbon Dioxide 26 mEq/L (23-29); Chloride 103 mEq/L (98-107); Creatine Kinase 1811 Units/L (30-223); Glucose 150 mg/dL (70-105); Osmolality,Calculated 284 (280-300); Potassium 3.9 mEq/L (3.5-5.1); Sodium 135 mEq/L (136-145); eGFR For African Americans > 60 (> 60); eGFR For Non-African Americans > 60 (> 60)
[2021-08-13] MEDS: *HR* Enoxaparin 40 MG/0.4 ML SYRINGE SQ SCH (04:56)
[2021-08-13 08:48] LABS: Estimated Average Glucose 134 mg/dl; Hemoglobin A1C 6.3 %
[2021-08-13] MEDS: Insulin LISPRO 300 UNITS/3 ML VIAL SUBQ SCH ×3 (10:08→17:21)
[2021-08-13] MEDS: Aspirin Enteric Coated 81 MG Tablet PO SCH (10:09)
[2021-08-13] MEDS: cefTRIAXone 1,000 MG in 0.9 % Sodium Chloride Mini Bag 100 ML IVPB SCH (10:11)
[2021-08-13] MEDS: 0.9 % Sodium Chloride 1,000 ML IVC SCH ×2 (13:47→20:43)
[2021-08-14] MEDS: 0.9 % Sodium Chloride 1,000 ML IVC SCH ×2 (01:21→16:57)
[2021-08-14] MEDS: *HR* Enoxaparin 40 MG/0.4 ML SYRINGE SQ SCH (05:52)
[2021-08-14] MEDS: Insulin LISPRO 300 UNITS/3 ML VIAL SUBQ SCH ×3 (08:14→16:58)
[2021-08-14] MEDS: cefTRIAXone 1,000 MG in 0.9 % Sodium Chloride Mini Bag 100 ML IVPB SCH (08:20)
[2021-08-14] MEDS: Aspirin Enteric Coated 81 MG Tablet PO SCH (08:20)
[2021-08-14] MEDS ORDERED: *HR* OxyCODONE Immed Rel 5 MG TABLET PO PRN (17:23)
[2021-08-14] MEDS ORDERED: Bisacodyl 10 MG RECTAL SUPPOSITORY RC PRN (17:25)
[2021-08-14] MEDS ORDERED: polyethylene glycoL 3350 17 GM POWD.PACK PO SCH (17:30)
[2021-08-14] MEDS ORDERED: *HR* Metoprolol 5 MG/5 ML VIAL IVP ONE (19:22)
[2021-08-15] MEDS: *HR* Enoxaparin 40 MG/0.4 ML SYRINGE SQ SCH (05:43)
[2021-08-15] MEDS: 0.9 % Sodium Chloride 1,000 ML IVC SCH ×2 (06:16→19:52)
[2021-08-15] MEDS: Insulin LISPRO 300 UNITS/3 ML VIAL SUBQ SCH ×3 (07:00→17:08)
[2021-08-15] MEDS: cefTRIAXone 1,000 MG in 0.9 % Sodium Chloride Mini Bag 100 ML IVPB SCH (07:37)
[2021-08-15] MEDS: Aspirin Enteric Coated 81 MG Tablet PO SCH (07:38)
[2021-08-16] MEDS: polyethylene glycoL 3350 17 GM POWD.PACK PO SCH ×2 (05:32→08:27)
[2021-08-16] MEDS: *HR* Enoxaparin 40 MG/0.4 ML SYRINGE SQ SCH (05:32)
[2021-08-16] MEDS: Insulin LISPRO 300 UNITS/3 ML VIAL SUBQ SCH ×3 (08:25→17:50)
[2021-08-16] MEDS: cefTRIAXone 1,000 MG in 0.9 % Sodium Chloride Mini Bag 100 ML IVPB SCH (08:27)
[2021-08-16] MEDS: Aspirin Enteric Coated 81 MG Tablet PO SCH (08:27)
[2021-08-16] MEDS: 0.9 % Sodium Chloride 1,000 ML IVC SCH (08:29)
[2021-08-16] MEDS ORDERED: 0.9 % Sodium Chloride 1,000 ML IVC SCH (12:34)
[2021-08-16 15:30] LABS: Influenza A PCR Negative (Negative); Influenza B PCR Negative (Negative); Resp. Syncytial Virus PCR Negative (Negative)
[2021-08-16 15:31] LABS: SARS-CoV-2 by PCR (In House) Negative (Negative)
[2021-08-17 02:40] LABS: Hematocrit 31.2 % (37.5-50.1); Mean Corpuscular HGB Conc 32.1 g/dL (31.6-35.5); Mean Corpuscular Hemoglobin 27.5 pg (28.0-33.3); Mean Corpuscular Volume 85.7 fL (83.0-100.0); Mean Platelet Volume 9.4 fL (9.4-12.4); Platelet Count 331 K/mcL (140-400); Red Blood Count 3.64 M/mcL (4.19-5.50); Red Cell Distribution Width 15.4 % (11.5-14.5); White Blood Count 6.2 K/mcL (4.3-11.1)
[2021-08-17 02:58] LABS: BUN/Creatinine Ratio 29 (6-26); Blood Urea Nitrogen 22 mg/dL (8-23); Calcium 8.9 mg/dL (8.6-10.3); Carbon Dioxide 31 mEq/L (23-29); Chloride 97 mEq/L (98-107); Creatine Kinase 288 Units/L (30-223); Glucose 146 mg/dL (70-105); Osmolality,Calculated 278 (280-300); Potassium 4.2 mEq/L (3.5-5.1); Sodium 131 mEq/L (136-145); eGFR For African Americans > 60 (> 60); eGFR For Non-African Americans > 60 (> 60)
[2021-08-17] MEDS: *HR* Enoxaparin 40 MG/0.4 ML SYRINGE SQ SCH (05:13)
[2021-08-17] MEDS: Insulin LISPRO 300 UNITS/3 ML VIAL SUBQ SCH ×3 (08:23→18:52)
[2021-08-17] MEDS: polyethylene glycoL 3350 17 GM POWD.PACK PO SCH (08:58)
[2021-08-17] MEDS: cefTRIAXone 1,000 MG in 0.9 % Sodium Chloride Mini Bag 100 ML IVPB SCH (08:58)
[2021-08-17] MEDS: Aspirin Enteric Coated 81 MG Tablet PO SCH (09:00)
[2021-08-17 18:20] VITALS: BP 111/63; PULSE 93; TEMP 97.8; O2SAT 99
== END 2021-08-17 20:49 | DRG 565 ==
LOC: 3BNU 12:00 → EMEROOARM 12:00 → 3BNU 18:25 → SUATTDRO 08-13 14:56
PROVIDERS: ADMIT Hospitalist; ATTEND Internal Medicine